=== PATIENT | male | born 1985 | race American Indian/Alaskan Native ===

== ENCOUNTER 2018-03-28 18:41 | Emergency (ER) | payer SELFPAY ==
[2018-03-28 18:48] VITALS: BP 128/89
== END 2018-03-28 19:50 | disposition left against medical advice (07) ==
LOC: ED 18:41
DX: H47.092 Other disorders of optic nerve, not elsewhere classified, left eye (principal); Z53.21 Procedure and treatment not carried out due to patient leaving prior to being seen by health care provider

== ENCOUNTER 2018-06-15 15:01 | Emergency (ER) | payer SELFPAY ==
[2018-06-15 15:10] VITALS: BP 119/74
[2018-06-15] MEDS ORDERED: MOTRIN PO ONE ×2 (17:03→18:02)
--- NOTE | 2018-06-15 17:07 | Emergency Department Report ---
ED Lower Extremity HPI - General Chief Complaint: Extremity Injury, Lower Stated Complaint: RT KNEE SWOLLEN Time Seen by Provider: 06/15/18 17:00 Source: patient Mode of arrival: Ambulatory Limitations: No Limitations - History of Present Illness Initial Comments: This is a 33-year-old male nontoxic, well nourished in appearance, no acute signs of distress presents to the ED with c/o of right knee pain 4 days. 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 Patient denies any trauma. Patient denies any numbness, tingling, fever, chills , nausea, vomiting, chest pain, shortness of breath, headache, stiff neck. Patient denies any joint swelling or joint redness. Patient denies decreased range of motion. Patient stated has decreased gait due to pain. Patient denies any allergies. PMH includes HIV. MD Complaint: knee injury -: days(s) (4) Injury: Knee: Right Place: work Severity: mild Severity scale (0 -10): 8 Improves With: immobilization Worsens With: weight bearing, movement Associated Symptoms: swelling, able to partially bear weight, ambulatory. denies: snap/pop sensation, numbness, tingling, unable to bear weight - Related Data Previous Rx's Medication Instructions Recorded Last Taken Type Ibuprofen [Motrin] 600 mg PO Q8H PRN #20 tablet 06/15/18 Unknown Rx Allergies Allergy/AdvReac Type Severity Reaction Status Date / Time apple Allergy Itching Verified 06/15/18 15:06 [facility] 1999 soap Allergy Hives Uncoded 06/15/18 15:06 oatmeal Allergy Itching Uncoded 06/15/18 15:06 ED Review of Systems ROS: Stated complaint: RT KNEE SWOLLEN Other details as noted in HPI Constitutional: denies: chills, fever Eyes: denies: eye pain, eye discharge, vision change ENT: denies: ear pain, throat pain Respiratory: denies: cough, shortness of breath, wheezing Cardiovascular: denies: chest pain, palpitations Endocrine: no symptoms reported Gastrointestinal: denies: abdominal pain, nausea, diarrhea Genitourinary: denies: urgency, dysuria Musculoskeletal: denies: back pain, joint swelling, arthralgia Skin: denies: rash, lesions Neurological: denies: headache, weakness, paresthesias Psychiatric: denies: anxiety, depression Hematological/Lymphatic: denies: easy bleeding, easy bruising ED Past Medical Hx - Past Medical History Previous Medical History?: Yes Hx HIV: Yes - Surgical History Past Surgical History?: No - Social History Smoking Status: Never Smoker Substance Use Type: Marijuana - Medications Home Medications: Home Medications Medication Instructions Recorded Confirmed Last Taken Type Ibuprofen [Motrin] 600 mg PO Q8H PRN #20 tablet 06/15/18 Unknown Rx ED Physical Exam - General Limitations: No Limitations General appearance: alert, in no apparent distress - Head Head exam: Present: atraumatic, normocephalic - Eye Eye exam: Present: normal appearance - ENT ENT exam: Present: mucous membranes moist - Neck Neck exam: Present: normal inspection - Respiratory Respiratory exam: Present: normal lung sounds bilaterally. Absent: respiratory distress - Cardiovascular Cardiovascular Exam: Present: regular rate, normal rhythm. Absent: systolic murmur, diastolic murmur, rubs, gallop - GI/Abdominal GI/Abdominal exam: Present: soft, normal bowel sounds - Rectal Rectal exam: Present: deferred - Extremities Exam Extremities exam: Present: normal inspection, full ROM, tenderness, normal capillary refill. Absent: joint swelling - Expanded Lower Extremity Exam Right Hip exam: Present: normal inspection, full ROM. Absent: tenderness, swelling Upper Leg exam: Present: normal inspection, full ROM. Absent: tenderness, swelling Knee exam: Present: normal inspection, full ROM, tenderness, swelling, effusion , full knee extension. Absent: abrasion, laceration, ecchymosis, deformity, crepidus, dislocation, pain w/ pronation/supination, posterior draw sign, pain/ laxity with valgus, pain/laxity with varus Lower Leg exam: Present: normal inspection, full ROM. Absent: tenderness, swelling, Helene's sign Ankle exam: Present: normal inspection, full ROM. Absent: tenderness, swelling Foot/Toe exam: Present: normal inspection, full ROM. Absent: tenderness, swelling Neuro vascular tendon exam: Present: no vascular compromise. Absent: pulse deficit, abnormal cap refill, motor deficit, sensory deficit, tendon deficit, extremity cold to touch, pallor, abnormal 2-point discrimination, decreased fine /light touch, foot drop, peroneal nerve deficit, significant pain with passive ROM of distal joint Gait: Positive: observed and limited by pain - Back Exam Back exam: Present: normal inspection, full ROM - Neurological Exam Neurological exam: Present: alert, oriented X3, normal gait - Psychiatric Psychiatric exam: Present: normal affect, normal mood - Skin Skin exam: Present: warm, dry, intact, normal color. Absent: rash ED Course Vital Signs 06/15/18 15:06 Temperature 99.2 F Pulse Rate 104 H Respiratory 18 Rate Blood Pressure 119/74 O2 Sat by Pulse 97 Oximetry - Reevaluation(s) Reevaluation #1: 06/15/18 17:07 Patient is speaking in full sentences with no signs of distress noted. ED Lower Extremity MDM - Medical Decision Making This is a 33-year-old male that presents with right knee strain. Patient is stable and was examined by me. I referred patient to an orthopedic doctor for further evaluation for possible MRI. X-ray has been obtained and dictated by the radiologist. Patient is notified of the x-ray report with noted by the patient. Patient does have normal gait with no tenderness and no joint swelling. No ecchymosis. no joint redness or swelling. Not warm to touch. No signs of cellulites present. Patient received a knee immobilize. Patient was instructed to RICE therapy. Patient received Motrin for pain. Patient is discharged with Motrin. At time of discharge, the patient does not seem toxic or ill in appearance. No acute signs of distress noted. Patient agrees to discharge treatment plan of care. No further questions noted by the patient. Critical care attestation.: If time is entered above; I have spent that time in minutes in the direct care of this critically ill patient, excluding procedure time. ED Disposition Clinical Impression: Strain of right knee Qualifiers: Encounter type: initial encounter Qualified Code(s): S86.911A - Strain of unspecified muscle(s) and tendon(s) at lower leg level, right leg, initial encounter Disposition: TO HOME OR SELFCARE Is pt being admited?: No Does the pt Need Aspirin: No Condition: Stable Instructions: Knee Pain (ED), Knee Immobilizer (ED), RICE Therapy (ED) Additional Instructions: Follow-up with a orthopedic doctor in 3-5 days or if symptoms worsen and continue return to emergency room as soon as possible. Prescriptions: Ibuprofen [Motrin] 600 mg PO Q8H PRN #20 tablet PRN Reason: Pain Referrals: PRIMARY CARE, [Primary Care Provider] - 3-5 Days MELINA DANIELS MD [Staff Physician] - 3-5 Days [facility] [Outside] - 3-5 Days Forms: Work/School Release Form(ED)
--- NOTE | 2018-06-15 18:25 | XRay Report ---
FINAL REPORT PROCEDURE: XR KNEE 3V RT TECHNIQUE: RIGHT knee radiographs, AP, lateral and oblique views. CPT 81910 HISTORY: right knee pain COMPARISON: No prior studies are available for comparison. FINDINGS: No evidence of fracture or dislocation. Bone density and joint spaces appear well preserved. Small joint effusion appears to be present. IMPRESSION: Small joint effusion otherwise negative exam..
== END 2018-06-15 18:50 | disposition home or self-care (01) ==
LOC: ED 15:01
DX: S86.911A Strain of unspecified muscle(s) and tendon(s) at lower leg level, right leg, initial encounter (principal); Z91.018 Allergy to other foods; Z21 Asymptomatic human immunodeficiency virus [HIV] infection status; W22.8XXA Striking against or struck by other objects, initial encounter; Y93.89 Activity, other specified; Y92.89 Other specified places as the place of occurrence of the external cause; Y99.8 Other external cause status

== ENCOUNTER 2018-10-13 13:11 | Emergency (ER) | payer SELFPAY ==
[2018-10-13 13:36] VITALS: BP 136/90
[2018-10-13] MEDS ORDERED: DECADRON IM ONE (13:54)
[2018-10-13] MEDS ORDERED: BICILLIN L-A IM ONE (13:54)
[2018-10-13] MEDS ORDERED: LIDOCAINE VISCOUS 2% PO ONE (13:55)
[2018-10-13] MEDS ORDERED: TYLENOL PO ONE (13:55)
[2018-10-13] MEDS ORDERED: ALUM-MAG HYDROX-SIMETH 200-200-20MG/5ML PO ONE (13:55)
--- NOTE | 2018-10-13 14:00 | Emergency Department Report ---
ED ENT HPI - General Chief complaint: Sore Throat Stated complaint: VOMIT BLOOD/THROAT PAIN Time Seen by Provider: 10/13/18 13:42 Source: patient Mode of arrival: Ambulatory Limitations: No Limitations - History of Present Illness Initial comments: Patient is a 33-year-old male who presents to ED complaining of throat pain 4 days. Patient describes pain as throbbing in nature, 8 out of 10 intensity, nonradiating, localized to his throat. Admits pain with swallowing and eating. Patient before meals was evaluated by the care medical was not treated. Patient denies nausea/vomiting/abdominal pain/shortness of breath/chest pain/headache. MD complaint: sore throat, difficulty swallowing -: Sudden Location: throat Severity: moderate Severity scale (0 -10): 6 Quality: aching Consistency: constant Worsens with: swallowing, eating Associated Symptoms: pain with swallowing. denies: fever, cough, gum swelling, hearing loss, discharge from ear, rhinorrhea - Related Data Previous Rx's Medication Instructions Recorded Last Taken Type Ibuprofen [Motrin 600 MG tab] 600 mg PO Q8H PRN #20 tablet 10/13/18 Unknown Rx Nystas/Diphen/Xyl Visc/Mylanta 15 ml PO Q4H PRN #120 ml 10/13/18 Unknown Rx [Magic Mouthwash] Allergies Allergy/AdvReac Type Severity Reaction Status Date / Time apple Allergy Itching Verified 06/15/18 15:06 [facility] 1999 soap Allergy Hives Uncoded 06/15/18 15:06 oatmeal Allergy Itching Uncoded 06/15/18 15:06 ED Dental HPI - General Chief complaint: Sore Throat Stated complaint: VOMIT BLOOD/THROAT PAIN Time Seen by Provider: 10/13/18 13:42 Source: patient Mode of arrival: Ambulatory Limitations: No Limitations - Related Data Previous Rx's Medication Instructions Recorded Last Taken Type Ibuprofen [Motrin 600 MG tab] 600 mg PO Q8H PRN #20 tablet 10/13/18 Unknown Rx Nystas/Diphen/Xyl Visc/Mylanta 15 ml PO Q4H PRN #120 ml 10/13/18 Unknown Rx [Magic Mouthwash] Allergies Allergy/AdvReac Type Severity Reaction Status Date / Time apple Allergy Itching Verified 06/15/18 15:06 [facility] 1999 soap Allergy Hives Uncoded 06/15/18 15:06 oatmeal Allergy Itching Uncoded 06/15/18 15:06 ED Review of Systems ROS: Stated complaint: VOMIT BLOOD/THROAT PAIN Other details as noted in HPI Comment: All other systems reviewed and negative ED Past Medical Hx - Past Medical History Previous Medical History?: Yes Hx HIV: Yes - Surgical History Past Surgical History?: No - Social History Smoking Status: Current Every Day Smoker Substance Use Type: None - Medications Home Medications: Home Medications Medication Instructions Recorded Confirmed Last Taken Type Ibuprofen [Motrin 600 MG tab] 600 mg PO Q8H PRN #20 tablet 10/13/18 Unknown Rx Nystas/Diphen/Xyl Visc/Mylanta 15 ml PO Q4H PRN #120 ml 10/13/18 Unknown Rx [Magic Mouthwash] ED Physical Exam - General Limitations: No Limitations General appearance: alert, in no apparent distress - Head Head exam: Present: atraumatic, normocephalic - Eye Eye exam: Present: normal appearance - ENT ENT exam: Present: mucous membranes moist - Expanded ENT Exam Expanded Mouth exam: Present: tongue normal Teeth exam: Present: normal inspection Throat exam: Positive: tonsillar erythema, tonsillar exudate, R peritonsillar mass - Neck Neck exam: Present: normal inspection, full ROM, lymphadenopathy. Absent: tenderness - Respiratory Respiratory exam: Present: normal lung sounds bilaterally. Absent: respiratory distress, wheezes, rales, rhonchi - Cardiovascular Cardiovascular Exam: Present: regular rate, normal rhythm. Absent: systolic murmur, diastolic murmur, rubs, gallop - GI/Abdominal GI/Abdominal exam: Present: soft, normal bowel sounds - Rectal Rectal exam: Present: deferred - Extremities Exam Extremities exam: Present: normal inspection - Back Exam Back exam: Present: normal inspection - Neurological Exam Neurological exam: Present: alert, oriented X3 - Psychiatric Psychiatric exam: Present: normal affect, normal mood - Skin Skin exam: Present: warm, dry, intact, normal color. Absent: rash ED Course Vital Signs 10/13/18 13:34 Temperature 98.4 F Pulse Rate 101 H Respiratory 18 Rate Blood Pressure 136/90 O2 Sat by Pulse 97 Oximetry ED Medical Decision Making - Medical Decision Making 33-year-old male presents with strep pharyngitis. ED course: Rapid strep tests ordered rapid strep test positive Patient received 1 dose of Tylenol, 1.2 million units of penicillin, 10 mg Decadron Was no fever in the ED stay Vital signs stable patient is in no acute or respiratory distress. No airway compromise Discussed findings with patient about the positive strep. Discussed treatment in ED with patient Discussed the patient that strep throat is contagious and to limit sharing spoons and such. History to be sent home on Motrin and Magic mouthwash Discussed with patient follow-up with primary care physician. Patient verbally states he understands and will comply to follow-up. Critical care attestation.: If time is entered above; I have spent that time in minutes in the direct care of this critically ill patient, excluding procedure time. ED Disposition Clinical Impression: Pharyngitis Disposition: - TO HOME OR SELFCARE Is pt being admited?: No Does the pt Need Aspirin: No Condition: Stable Instructions: Tonsillitis (ED), Pharyngitis (ED) Additional Instructions: Make sure to follow up with the primary care physician as discussed. Take all your medications as you've been prescribed. If you have any worsening symptoms or develop new symptoms please return to ED immediately. Prescriptions: Ibuprofen [Motrin 600 MG tab] 600 mg PO Q8H PRN #20 tablet PRN Reason: Pain Nystas/Diphen/Xyl Visc/Mylanta [Magic Mouthwash] 15 ml PO Q4H PRN #120 ml PRN Reason: Sore Throat Referrals: [facility] [Outside] - 3-5 Days [facility] [Outside] - 3-5 Days Forms: Work/School Release Form(ED) Time of Disposition: 14:11
== END 2018-10-13 14:40 | disposition home or self-care (01) ==
LOC: ED 13:11
DX: J02.9 Acute pharyngitis, unspecified (principal); F17.200 Nicotine dependence, unspecified, uncomplicated
CPT/HCPCS: 96372; 99282; J0561; J1100

== ENCOUNTER 2018-12-29 10:16 | Emergency (ER) | payer SELFPAY ==
[2018-12-29 10:26] VITALS: BP 120/76
--- NOTE | 2018-12-29 11:41 | Emergency Department Report ---
ED Back Pain/Injury HPI - General Chief Complaint: Pain General Stated Complaint: RT SIDE PAIN Time Seen by Provider: 12/29/18 11:03 Source: patient Limitations: No Limitations - History of Present Illness Initial Comments: Pt is a 33 yo male who presents to the ED with c/o right lower back pain that radiates down the right posterior leg that began yesterday. He states the pain is sharp and causing a tingling sensation. He states he has had constipation and difficulty urinating. He denies any fall, injury, or trauma. He states he has also had rectal bleeding which he believes is due to hemorrhoids and has been using preparation H. He denies ever having hemorrhoids previously. He denies any fever or N/V/D. The patient has a hx of sickle cell trait. Also, has a hx of HIV and is taking his antivirals. States he last had his levels checked December 16 and has another appt tomorrow (12/30/18). - Related Data Previous Rx's Medication Instructions Recorded Last Taken Type Nystas/Diphen/Xyl Visc/Mylanta 15 ml PO Q4H PRN #120 ml 10/13/18 Unknown Rx [Magic Mouthwash] Cyclobenzaprine [Flexeril] 10 mg PO QHS PRN #14 tablet 12/29/18 Unknown Rx Docusate Sodium [Colace] 100 mg PO BID #14 capsule 12/29/18 Unknown Rx Hydrocortisone [Anucort-HC SUPPOS] 25 mg RC BID #14 supp.rect 12/29/18 Unknown Rx Ibuprofen [Motrin 600 MG tab] 600 mg PO Q8H PRN #20 tablet 12/29/18 Unknown Rx Polyethylene Glycol 3350 [Miralax] 119 gm PO DAILY PRN #7 powder 12/29/18 Unknown Rx Allergies Allergy/AdvReac Type Severity Reaction Status Date / Time apple Allergy Itching Verified 06/15/18 15:06 [facility] 1999 soap Allergy Hives Uncoded 06/15/18 15:06 oatmeal Allergy Itching Uncoded 06/15/18 15:06 ED Review of Systems ROS: Stated complaint: RT SIDE PAIN Other details as noted in HPI Comment: All other systems reviewed and negative ED Past Medical Hx - Past Medical History Previous Medical History?: Yes Hx HIV: Yes - Surgical History Past Surgical History?: No - Social History Smoking Status: Never Smoker Substance Use Type: None - Medications Home Medications: Home Medications Medication Instructions Recorded Confirmed Last Taken Type Nystas/Diphen/Xyl Visc/Mylanta 15 ml PO Q4H PRN #120 ml 10/13/18 Unknown Rx [Magic Mouthwash] Cyclobenzaprine [Flexeril] 10 mg PO QHS PRN #14 tablet 12/29/18 Unknown Rx Docusate Sodium [Colace] 100 mg PO BID #14 capsule 12/29/18 Unknown Rx Hydrocortisone [Anucort-HC SUPPOS] 25 mg RC BID #14 supp.rect 12/29/18 Unknown Rx Ibuprofen [Motrin 600 MG tab] 600 mg PO Q8H PRN #20 tablet 12/29/18 Unknown Rx Polyethylene Glycol 3350 [Miralax] 119 gm PO DAILY PRN #7 powder 12/29/18 Unknown Rx ED Physical Exam - General Limitations: No Limitations General appearance: alert, in no apparent distress - Head Head exam: Present: atraumatic, normocephalic - Eye Eye exam: Present: normal appearance - ENT ENT exam: Present: mucous membranes moist - Respiratory Respiratory exam: Present: normal lung sounds bilaterally. Absent: respiratory distress, wheezes, rales, rhonchi, stridor, chest wall tenderness, accessory muscle use, decreased breath sounds, prolonged expiratory - Cardiovascular Cardiovascular Exam: Present: regular rate, normal rhythm, normal heart sounds. Absent: systolic murmur, diastolic murmur, rubs, gallop - GI/Abdominal GI/Abdominal exam: Present: soft, normal bowel sounds. Absent: distended, tenderness, guarding, rebound, rigid - Rectal Rectal exam: Present: normal rectal tone, heme (+) stool, hemorrhoids (two external hemorrhoids present, one internal hemorrhoid present on examination ), normal prostate, other (KIRSTIE goodwin present during examination, brown stool on exam, no gross blood ). Absent: mass - Back Exam Back exam: Present: normal inspection, tenderness (pt has right lumbar paraspinal tenderness to palpation, no step offs, no deformities, no midline tenderness), other (pt has pain with right leg movement ) - Neurological Exam Neurological exam: Present: alert, oriented X3, CN II-XII intact, normal gait. Absent: motor sensory deficit - Psychiatric Psychiatric exam: Present: normal affect, normal mood - Skin Skin exam: Present: warm, dry, intact ED Course Vital Signs 12/29/18 12/29/18 10:24 13:01 Temperature 98.3 F Pulse Rate 60 Respiratory 16 18 Rate Blood Pressure 120/76 O2 Sat by Pulse 98 Oximetry ED Medical Decision Making - Lab Data Result diagrams: 12/29/18 12:00 - Radiology Data Radiology results: report reviewed Ordering Physician: RODOLFO WALKER Date of Service: 12/29/18 Procedure(s): CT lumbar spine wo con Accession Number(s): [id number] cc: RODOLFO WALKER CT LUMBAR SPINE WITHOUT CONTRAST History: Right lower back pain radiating down right lower extremity Technique: Helical CT without IV contrast. Sagittal and coronal reformatted images. Findings: Normal bone mineralization. The lumbar vertebral bodies, disc spaces, posterior elements and paraspinal soft tissues are unremarkable. No evidence for fracture, malalignment or degenerative changes. Although intraspinal contents is limited on noncontrast CT, no obvious large herniated disc or central canal stenosis. IMPRESSION: Unremarkable CT lumbar spine. If further evaluation is needed MRI lumbar spine as an outpatient could be obtained. Transcribed By: TTR Dictated By: AL PALOMO JR, MD Electronically Authenticated By: AL PALOMO JR, MD Signed Date/Time: 12/29/18 1136 - Medical Decision Making Pt is a 33 yo male who presents to the ED with c/o right lower back pain that radiates down the right posterior leg that began yesterday. He states the pain is sharp and causing a tingling sensation. He states he has had constipation and difficulty urinating. He denies any fall, injury, or trauma. He states he has also had rectal bleeding which he believes is due to hemorrhoids and has been using preparation H. He denies ever having hemorrhoids previously. He denies any fever or N/V/D. The patient has a hx of sickle cell trait. Also, has a hx of HIV and is taking his antivirals. States he last had his levels checked December 16 and has another appt tomorrow (12/30/18). CT of the lumbar spine with no acute process. Will tx patient for sciatica. Advised to only use the muscle relaxer at night as needed and do not drive or operate heavy machinery while taking. Rectal examination reveals two external hemorrhoids and one internal hemorrhoid, hemoccult card was developed and was positive. H/H were normal. No gross blood on exam. Pt given tx for hemorrhoids. Pt given GI referral and advised to follow up [facility]. Discussed in detail with patient the importance of GI follow up for colonscopy and further evaluation to r/o colon malignancy/polyps, etc. Patient given list of community resources and good rx card. Advised pt to keep his appt with infectious disease for tomorrow (12/30/18). Advised pt to follow up with a PCP in the next 2-3 days. Discussed with pt to return to the emergency room immediately for any new or worsening symptoms. - Differential Diagnosis sciatica, strain, sprain, radiculopathy, DDD Critical care attestation.: If time is entered above; I have spent that time in minutes in the direct care of this critically ill patient, excluding procedure time. ED Disposition Clinical Impression: Rectal bleeding Sciatica Qualifiers: Laterality: right Qualified Code(s): M54.31 - Sciatica, right side Low back pain Qualifiers: Chronicity: acute Back pain laterality: right Sciatica presence: with sciatica Sciatica laterality: sciatica of right side Qualified Code(s): M54.41 - Lumbago with sciatica, right side Hemorrhoids Qualifiers: Hemorrhoid type: unspecified Qualified Code(s): K64.9 - Unspecified hemorrhoids Disposition: - TO HOME OR SELFCARE Is pt being admited?: No Does the pt Need Aspirin: No Condition: Stable Instructions: Hemorrhoids (ED), Rectal Bleeding (ED), Sciatica (ED) Additional Instructions: Please follow up with a GI doctor [facility]. Please follow up with a primary care doctor in the next 2-3 days. Take all medication as prescribed. Only use muscle relaxer as needed at night and do not drive, work, or operate heavy machinery while taking. Return to the emergency department immediately for any new or worsening symptoms. Prescriptions: Cyclobenzaprine [Flexeril] 10 mg PO QHS PRN #14 tablet PRN Reason: Muscle Spasm Hydrocortisone [Anucort-HC SUPPOS] 25 mg RC BID #14 supp.rect Docusate Sodium [Colace] 100 mg PO BID #14 capsule Polyethylene Glycol 3350 [Miralax] 119 gm PO DAILY PRN #7 powder PRN Reason: Constipation Ibuprofen [Motrin 600 MG tab] 600 mg PO Q8H PRN #20 tablet PRN Reason: Pain Referrals: [facility] [Other] - 2-3 Days [facility] [Provider Group] - [facility] Forms: Work/School Release Form(ED) Time of Disposition: 13:50 Print Language: KHMER
--- NOTE | 2018-12-29 11:57 | Cat Scan Report ---
CT LUMBAR SPINE WITHOUT CONTRAST History: Right lower back pain radiating down right lower extremity Technique: Helical CT without IV contrast. Sagittal and coronal reformatted images. Findings: Normal bone mineralization. The lumbar vertebral bodies, disc spaces, posterior elements and paraspinal soft tissues are unremarkable. No evidence for fracture, malalignment or degenerative changes. Although intraspinal contents is limited on noncontrast CT, no obvious large herniated disc or central canal stenosis. IMPRESSION: Unremarkable CT lumbar spine. If further evaluation is needed MRI lumbar spine as an outpatient could be obtained.
[2018-12-29] MEDS ORDERED: FLEXERIL PO ONE (12:08)
[2018-12-29 12:12] LABS: Hemoglobin 12.9 gm/dl (11.8-15.2)
[2018-12-29] MEDS ORDERED: TORADOL PO ONE (13:00)
[2018-12-29 13:24] LABS: Bilirubin,Urine NEG (Negative); Blood,Urine MOD (Negative); Color,Urine Yellow (Yellow); Mucus,Urine FEW /HPF; Protein,Urine <15 mg/dL mg/dL (Negative)
== END 2018-12-29 14:06 | disposition home or self-care (01) ==
LOC: ED 10:16
DX: M54.31 Sciatica, right side (principal); K64.9 Unspecified hemorrhoids
CPT/HCPCS: 36415; 72131; 81001; 82271; 85014; 85018